=== PATIENT | female | born 1975 | race Caucasian/White ===

== ENCOUNTER 2018-05-22 21:53 | Emergency (ER) | payer OTHER ==
[2018-05-22 21:57] VITALS: BP 126/85
--- NOTE | 2018-05-23 00:35 | ED SKIN/ALLERGY COMPLAINT ---
History of Present Illness General Chief Complaint: Skin Rash/ Abcess Stated Complaint: ? INGROWN HAIR IN GROIN Source: patient Exam Limitations: no limitations Vital Signs & Intake/Output Vital Signs & Intake/Output Vital Signs Date Time Temp Pulse Resp B/P B/P Pulse O2 O2 Flow FiO2 Mean Ox Delivery Rate 05/22 2157 97.3 91 16 126/85 98 Room Air Allergies Coded Allergies: aspirin (NAUSEA 09/03/17) Reconcile Medications Amoxicillin 875 MG TABLET 1 TAB PO BID abscess Sulfamethoxazole/Trimethoprim (Bactrim Ds Tablet) 800 MG-160 MG TABLET 1 TAB PO BID abscess Triage Note: PT TO TRIAGE C/O ?INGROWN HAIR IN GROIN X2 DAYS. PT STATES SHE TRIED TO PUT WARM COMPRESSES AND IT ONLY "OOZED," A LITTLE. PT STATES IT IS VERY IRRITATED. APPEARS UNCOMFORTABLE WALKING AND SITTING IN TRIAGE. Triage Nurses Notes Reviewed? yes Onset: Gradual Duration: day(s): Timing: recent history Severity: severe Location: genitalia : No Patient currently breastfeeds: No HPI: 42-year-old female presents emergency department complaining of painful swelling to left labia beginning yesterday. Patient is wondering if this could be related to an ingrown hair. Patient states the pain and swelling have been increasing in severity. Patient denies urinary symptoms, abdominal pain, vomiting, fevers. (Leyla Lemons) Past History Travel History Traveled to [place] past 21 day No Medical History Any Pertinent Medical History? none Neurological: NONE EENT: NONE Cardiovascular: NONE Respiratory: NONE Gastrointestinal: NONE Hepatic: NONE Renal: NONE Musculoskeletal: NONE Psychiatric: ADHD Endocrine: NONE Blood Disorders: NONE Cancer(s): NONE TRACER CLERK/Reproductive: NONE Surgical History Surgical History: non-contributory Psychosocial History What is your primary language Surinamese Tobacco Use: Never used ETOH Use: denies use Family History Hx Contributory? No (Leyla Lemons) Review of Systems Review of Systems Constitutional: Reports: no symptoms. EENTM: Reports: no symptoms. Respiratory: Reports: no symptoms. Cardiovascular: Reports: no symptoms. GI: Reports: no symptoms. Genitourinary: Reports: no symptoms. Musculoskeletal: Reports: no symptoms. Skin: Reports: see HPI. Neurological/Psychological: Reports: no symptoms. Hematologic/Endocrine: Reports: no symptoms. Immunologic/Allergic: Reports: no symptoms. All Other Systems: Reviewed and Negative (Leyla Lemons) Physical Exam Physical Exam General Appearance: well developed/nourished, no apparent distress, alert, awake Head: atraumatic, normal appearance Eyes: Bilateral: normal appearance. Ears, Nose, Throat: hearing grossly normal Neck: normal inspection, supple, full range of motion Respiratory: no respiratory distress Back: normal inspection, normal range of motion Extremities: normal range of motion Neurologic/Psych: awake, alert, oriented x 3 Skin: see erythema as described below Skin Problem Character: abcess Comments: Genital: 1x1cm area of erythema, tenderness, fluctuance to left labia (Leyla Lemons) Progress Differential Diagnosis: abscess/cellulitis, allergic reaction, angioedema, contact dermatitis, urticaria Plan of Care: Orders Procedure Date/time Status TRUNK AREA CULTURE 05/23 55 Active Microbiology 05/23 55 TRUNK: Culture & Sensitivity - RECD 05/23 55 TRUNK: Gram Stain - RECD I&D performed with purulent material drained from abscess and culture sent to the lab. Patient started on appropriate antibiotics. She was educated on hygiene and warm compresses. Patient agrees the plan of care. She does report significant improvement in her pain following I&D. She will return in 2 days for wound check. (Leyla Lemons) Departure Departure Disposition: HOME OR SELF CARE Condition: Stable Clinical Impression Primary Impression: Labial abscess Referrals: Ashley Parsons (PCP/Family) Additional Instructions: Begin antibiotics tonight as prescribed. Apply warm compresses at least twice daily. Keep the area clean and dry. Rinse daily with soap and water. Return in 2 days for wound check. Return sooner if worsening symptoms or other concerns. Please note that there might be incidental findings in your evaluation that are unrelated to the current emergency department visit. Please notify your primary care doctor about this emergency department visit in order to obtain and review all of the testing performed so that these incidental findings can be monitored as needed. If you had an x-ray performed, please understand that some fractures may not be seen on the initial set of x-rays. If your symptoms persist you might need a repeat set of x-rays to check for such a fracture. If you had a laceration evaluated, please understand that foreign bodies such as glass or wood may not be visible to the naked eye or on plain x-rays. If the wound becomes red, swollen, increasingly more painful or if there is any drainage from the wound, please have it reevaluated by a physician for the possibility of a retained foreign body. If you're unable to follow up as outlined in the discharge instructions please return to the emergency department. Thank you for choosing the [facility] Emergency Department for your care. It was a pleasure to serve you today. Departure Forms: Customer Survey General Discharge Information Prescriptions: Current Visit Scripts Sulfamethoxazole/Trimethoprim (Bactrim Ds Tablet) 1 TAB PO BID #20 TAB Amoxicillin 1 TAB PO BID #20 TAB (Leyla Lemons) PA/CHIEF MECHANICAL ENGINEER Co-Sign Statement Statement: ED Attending supervision documentation- I saw and evaluated the patient. I have also reviewed all the pertinent lab results and diagnostic results. I agree with the findings and the plan of care as documented in the PA's/CHIEF MECHANICAL ENGINEER's documentation. x I have reviewed the ED Record and agree with the PA's/CHIEF MECHANICAL ENGINEER's documentation. [] Additions or exceptions (if any) to the PAs/CHIEF MECHANICAL ENGINEER's note and plan are summarized below: [] (Andreea DE LA CRUZ,Daniel) Procedures Incision and Drainage Site: left labia Blade Size: 11 I & D Procedure: Yes: betadine prep. No: sterile drapes applied, sterile dressing applied, wick placed. Progress: Small incision using 11 blade scalpel made in abscess, purulent drainage expressed from the abscess and sent to lab for culture, patient tolerated procedure well (Leyla Lemons)
[2018-05-23] MEDS ORDERED: BACTRIM DS TAB1 EACH PO (00:54)
[2018-05-23] MEDS ORDERED: AMOXICILLIN875 M1 PO (00:54)
== END 2018-05-23 01:31 ==
LOC: ERH 21:53
DX: N76.4 Abscess of vulva (principal)
CPT/HCPCS: 87070; J2001